=== PATIENT | male | born 1955 | race Caucasian/White ===

== ENCOUNTER 2022-08-30 08:17 | Emergency (ER) | payer OTHER ==
[~2022-08-30] VITALS: Ht 175.3 cm; Wt 70.3 kg
[2022-08-30 08:18] VITALS: BP 140/70
--- NOTE | 2022-08-30 08:28 | NUR ---
PT C/O DIARRHEA SINCE THIS AM, ALSO C/O PAIN TO WOUND ON SCALP S/P SKIN CA REMOVAL
[2022-08-30] MEDS ORDERED: NACL 0.9% 1,000 ML IV ONE (08:40)
[2022-08-30] MEDS ORDERED: MORPHINE SULFATE 4 MG/ML SYR IVP ONE (08:40)
[2022-08-30] MEDS ORDERED: ONDANSETRON 4 MG/2 ML VIAL IVP ONE (08:40)
[2022-08-30 09:05] LABS: HEMOGLOBIN 11.7 g/dL (12.0-18.0)
[2022-08-30 09:15] LABS: HEMATOCRIT 36.9 % (36-52); MEAN CORPUSCULAR HEMOGLOBIN 33 pg (27-31); MEAN CORPUSCULAR HGB CONC 32 g/dL (33-37); MEAN CORPUSCULAR VOLUME 103.1 fL (80-94); PLATELET COUNT (AUTO) 205 K/uL (140-450); RED BLOOD CELL COUNT(AUTO) 3.58 MIL/uL (4.20-6.10); RED CELL DISTRIBUTION WIDTH 14.9 % (11.6-13.7); WHITE BLOOD COUNT (AUTO) 20.7 K/uL (4.8-10.8)
[2022-08-30 09:23] LABS: ALBUMIN 2.9 g/dL (3.4-5.0); CARBON DIOXIDE 29.9 mmol/L (21-32); CREATININE 0.8 mg/dL (0.6-1.3); POTASSIUM 3.9 mmol/L (3.5-5.1); TOTAL BILIRUBIN 0.7 mg/dL (0.0-1.0)
[2022-08-30 09:57] LABS: LYMPHOCYTES % (MANUAL) 71 % (20-46); MONOCYTES % (MANUAL) 8 % (5-12)
[2022-08-30] MEDS ORDERED: ONDA-188 PO (10:26)
[2022-08-30] MEDS ORDERED: LOPE-289 PO (10:26)
[2022-08-30 10:57] VITALS: BP 124/70
--- NOTE | 2022-08-30 10:58 | NUR ---
Patient discharged with v/s stable. Written and verbal after care instructions given and explained. Patient verbalized understanding. Ambulatory with steady gait. All questions addressed prior to discharge. Advised to follow up with PMD.
== END 2022-08-30 10:57 | disposition home or self-care (01) ==
LOC: MED 08:17
DX: R10.9 Unspecified abdominal pain (principal); R19.7 Diarrhea, unspecified; I10 Essential (primary) hypertension; I25.10 Atherosclerotic heart disease of native coronary artery without angina pectoris; Z85.828 Personal history of other malignant neoplasm of skin; Z79.899 Other long term (current) drug therapy
CPT/HCPCS: 36415; 80053; 85025; 96361; 96374; 96375; 99284; J2270; J2405; J7030

== ENCOUNTER 2022-12-26 12:25 | Emergency (ER) | payer OTHER ==
[~2022-12-26] VITALS: Ht 175.3 cm; Wt 77.1 kg
[~2022-12-26 12:25] MED LIST: LOPE-289 PO; ONDA-188 PO
[2022-12-26 12:33] VITALS: BP 124/79
[2022-12-26 14:24] LABS: BASOPHILS % (AUTO) 0.1 % (0.0-2.0); EOSINOPHILS % (AUTO) 0.1 % (0.0-4.0); HEMATOCRIT 33.7 % (36-52); HEMOGLOBIN 10.9 g/dL (12.0-18.0); LYMPHOCYTES # (AUTO) 14.2 K/uL (2.0-11.5); LYMPHOCYTES % (AUTO) 93.1 % (20.5-51.1); MEAN CORPUSCULAR HEMOGLOBIN 31 pg (27-31); MEAN CORPUSCULAR HGB CONC 32 g/dL (33-37); MEAN CORPUSCULAR VOLUME 94.3 fL (80-94); MONOCYTES # (AUTO) 0.1 K/uL (0.8-1.0); MONOCYTES % (AUTO) 0.5 % (1.7-9.3); NEUTROPHILS # (AUTO) 0.9 K/uL (1.8-7.7); NEUTROPHILS % (AUTO) 6.2 % (42.2-75.2); PLATELET COUNT (AUTO) 214 K/uL (140-450); RED BLOOD CELL COUNT(AUTO) 3.58 MIL/uL (4.20-6.10); RED CELL DISTRIBUTION WIDTH 18.8 % (11.6-13.7); WHITE BLOOD COUNT (AUTO) 15.3 K/uL (4.8-10.8)
[2022-12-26 14:56] LABS: ALBUMIN 3.3 g/dL (3.4-5.0); ANION GAP 11.3 (8-16); ASPARTATE AMINOTRANSFERASE 18 U/L (15-37); CARBON DIOXIDE 29.7 mmol/L (21-32); CHLORIDE 96 mmol/L (98-107); CREATININE 0.7 mg/dL (0.6-1.3); GFR ARICAN-AMERICAN 145 mL/min (>90); GLUCOSE 118 mg/dL (74-106); SODIUM SERUM 133 mmol/L (136-145); TOTAL BILIRUBIN 0.8 mg/dL (0.0-1.0); UREA NITROGEN, BLOOD 16 mg/dL (7-18)
--- NOTE | 2022-12-26 17:02 | NUR ---
TO ER 7
--- NOTE | 2022-12-26 17:19 | NUR ---
Patient being evaluated by Dr. Mi at bedside.
[2022-12-26] MEDS ORDERED: NACL 0.9% 2,000 ML IV ONE (17:30)
[2022-12-26] MEDS ORDERED: HYDROcodone/APAP 10/325 MG 1 TAB TAB PO ONE (17:30)
[2022-12-26] MEDS ORDERED: cefTRIAXone 2,000 MG in DEXTROSE 5% 100 ML IV ONE (17:30)
[2022-12-26] MEDS ORDERED: cefTRIAXone 2,000 MG VIAL ONE (17:31)
--- NOTE | 2022-12-26 18:03 | NUR ---
Spoke to Chrissy Knox Case Management for updatecd face sheet and clinicals.
[2022-12-26] MEDS ORDERED: NORC10 PO (19:15)
[2022-12-26] MEDS ORDERED: LOSA100T2 PO (19:15)
--- NOTE | 2022-12-26 19:15 | NUR ---
Med rec complete.
--- NOTE | 2022-12-26 19:20 | NUR ---
Report given to CARLTON Mason for transfer of care.
--- NOTE | 2022-12-26 19:29 | NUR ---
PT RC'D IN BED 7. PT HAS ANX FLOWING AWAITNG ON ADMIT OR TRASFER ORDERS.
[2022-12-26] MEDS ORDERED: ONDANSETRON 4 MG/2 ML VIAL IVP ONE (22:05)
[2022-12-26] MEDS ORDERED: MORPHINE SULFATE 4 MG/ML SYR IVP ONE (22:15)
--- NOTE | 2022-12-26 23:14 | NUR ---
PT RESTING IN BED AWAITING ADMISSION OR TRANSFER ORDERS
[2022-12-27] MEDS ORDERED: MORPHINE SULFATE 4 MG/ML SYR IVP ONE ×4 (00:55→12:55)
--- NOTE | 2022-12-27 03:15 | NUR ---
PT COMPLIANING OF 9/10 PAIN AND REQUESTED SOMETHING STRONGER THAN MORPHINE
[2022-12-27] MEDS ORDERED: fentaNYL citrate 0.05 MG/ML VIAL IVP ONE (03:20)
--- NOTE | 2022-12-27 05:49 | NUR ---
PT TAKEN TO CT
--- NOTE | 2022-12-27 06:01 | NUR ---
PT RETURN FROM CT
--- NOTE | 2022-12-27 06:11 | NUR ---
PT RESTING IN BED AWAITING ADMISSION OR TRANSFER
--- NOTE | 2022-12-27 08:45 | NUR ---
REPORT RECEIVED FROM EMILIA VINCENT. ASSUMED CARE AT THIS TIME
--- NOTE | 2022-12-27 08:55 | NUR ---
pt awake c/o new head pain onset. MD made aware. hob positioned per comfort. on awake overnight monitor. bed at lowest position, bed rails upx2.
[2022-12-27] MEDS ORDERED: ONDANSETRON 4 MG/2 ML VIAL IVP ONE (12:55)
--- NOTE | 2022-12-27 13:23 | NUR ---
Patient to be transferred to [facility]. Is being transferred due to INSURANCE. Receiving facility has accepting physician and available space. ER physician has signed transfer form. Patient or responsible libertarian has agreed to transfer and signed form. Patient belongings inventoried and will be sent with patient. Copy of nursing notes, lab reports, EKG, Physicians Orders CT and X-rays to be sent with patient. Report called to NICK VINCENT at receiving facility. [facility] ambulance service has been called for transfer. ETA is 60-90MIN.
--- NOTE | 2022-12-27 14:15 | NUR ---
[facility] AT BEDSIDE FOR TRANSPORT
[2022-12-27 14:20] VITALS: BP 136/92
--- NOTE | 2022-12-27 14:20 | NUR ---
PT TRANSPORTED VIA [facility].
--- NOTE | 2022-12-27 14:21 | NUR ---
The patient's care was reviewed and supervised by Kasie Levin RN.
== END 2022-12-26 14:20 | disposition short-term general hospital (02) ==
LOC: MED 12:25
DX: A41.9 Sepsis, unspecified organism (principal); Z20.822 Contact with and (suspected) exposure to COVID-19; E86.0 Dehydration; C44.92 Squamous cell carcinoma of skin, unspecified; I25.10 Atherosclerotic heart disease of native coronary artery without angina pectoris; I10 Essential (primary) hypertension; Z79.899 Other long term (current) drug therapy
CPT/HCPCS: 36415; 71045; 80053; 83605; 84484; 85025; 87040; 87426; 87804; 93005; 96361; 96365; 96375; 96376; 99285; J0696; J2270; J2405; J7030; J3010